=== PATIENT | male | born 1945 | race Caucasian/White ===

== ENCOUNTER 2022-10-03 17:29 | Inpatient (IN) | payer MEDICARE, OTHER ==
[~2022-10-03] VITALS: Ht 165.1 cm; Wt 81.6 kg
[2022-10-03] MEDS ORDERED: ACET325C7 PO (19:16)
[2022-10-03] MEDS ORDERED: APIX5TAB PO (19:16)
[2022-10-03] MEDS ORDERED: ATOR40TA PO (19:16)
[2022-10-03] MEDS ORDERED: ARIP2TAB3 PO (19:16)
[2022-10-03 19:34] VITALS: BP 99/62
[2022-10-03] MEDS ORDERED: LORA-258 PO (19:45)
[2022-10-03] MEDS ORDERED: NITR0.4T48 SL (19:46)
[2022-10-03] MEDS ORDERED: METO200T49 PO (19:46)
[2022-10-03] MEDS ORDERED: TAMS-3 PO (19:49)
[2022-10-03] MEDS ORDERED: OSEL75CA PO (19:49)
[2022-10-03] MEDS ORDERED: FERR325T28 PO (20:03)
[2022-10-03] MEDS ORDERED: ASPI-618 PO (20:03)
[2022-10-03] MEDS ORDERED: CLOP75TA15 PO (20:03)
[2022-10-03] MEDS ORDERED: METO-358 PO (20:03)
[2022-10-03] MEDS ORDERED: DILT-3 PO (20:03)
[2022-10-03] MEDS ORDERED: POTA10CA43 PO (20:03)
[2022-10-03] MEDS ORDERED: BUME1TAB8 PO (20:03)
[2022-10-03] MEDS ORDERED: NITROGLYCERIN 0.4 MG/TAB BOTTLE SL PRN (20:45)
[2022-10-03 20:52] VITALS: BP 98/61
[2022-10-03] MEDS: APIXABAN 5 MG TABLET PO SCH (21:00)
[2022-10-03] MEDS: DOCUSATE SODIUM 100 MG CAPSULE PO SCH (21:00)
[2022-10-03] MEDS ORDERED: OSELTAMIVIR PHOSPHATE 75 MG CAPSULE PO SCH (21:00)
[2022-10-03] MEDS: ATORVASTATIN 40 MG TABLET PO SCH (21:37)
[2022-10-03] MEDS: LORAZEPAM 0.5 MG TABLET PO PRN (21:37)
[2022-10-03] MEDS: TAMSULOSIN HCL 0.4 MG CAP.SR.24H PO SCH (21:37)
--- NOTE | 2022-10-03 23:51 | NUR ---
patient admitted from [facility], alert, oriented x3 in his language, no sob, respirations are even nonlabored, skin warm and dry to touch, noted with purple bruise on his left side of trunk, blisters on his lower back, right toe discoloration, patient is ambulatory with contact guard, patient placed on contact isolation for questionable shingles on lower back with closed blisters, and patient is positive for influenza A since 09/28/22 from [facility] records. patient note with bleeding while urinating, and held Eliquis. no further bleeding noted, continue to monitor. dr watson reconciled the medications.
[2022-10-04] MEDS ORDERED: QUETIAPINE FUMARATE 25 MG TABLET PO STA (03:23)
--- NOTE | 2022-10-04 03:29 | NUR ---
Patient is very anxious, pacing around, high risk to fall, reoriented, assisted to the bathroom, still very anxious, called mason Ceja, with order to give seroquel, order noted
--- NOTE | 2022-10-04 03:55 | NUR ---
psych consult in place for agitation and anxiety, face sheet faxed to [facility] for consult.
[2022-10-04 04:40] VITALS: BP 124/73
--- NOTE | 2022-10-04 05:30 | NUR ---
patient constantly yelling, screaming, very agitative, combative, trying to leave, hitting staff, and walk out, reoriented, not effective, Seroquel not effective, monitored closely for safety.
--- NOTE | 2022-10-04 05:35 | NUR ---
Brenna VILLALBA paged waiting for call back regarding patient screaming, yelling, combativeness.
[2022-10-04] MEDS ORDERED: OLANZAPINE 10 MG VIAL IM STA (05:52)
--- NOTE | 2022-10-04 07:08 | NUR ---
patient in bed, laying down, still noted with yelling screaming, safety precautions are in place, checked on patient every 15 minutes, skin is intact, capillary refill to hands is less than 3 seconds, no distress noted at this time. endorsed to next shift accordingly.
[2022-10-04 07:38] LABS: IRON, SERUM 41 ug/dL (50-175)
[2022-10-04 07:50] VITALS: BP 125/84
[2022-10-04 07:51] LABS: HEMATOCRIT 39.8 % (36.7-47.1); MEAN CORPUSCULAR HEMOGLOBIN 31.5 uug (23.8-33.4); MEAN CORPUSCULAR VOLUME 94.7 fL (73.0-96.2); PLATELET COUNT (AUTO) 183 K/uL (152-348)
[2022-10-04 07:52] LABS: THYROID STIMULATING HORMONE 1.321 mIU/mL (0.358-3.740)
[2022-10-04 08:19] LABS: ALANINE AMINOTRANSFERASE 43 U/L (16-63); ALKALINE PHOSPHATASE 90 U/L (50-136); ASPARTATE AMINOTRANSFERASE 50 U/L (15-37); BILIRUBIN,TOTAL 0.8 mg/dL (0.2-1.0); CARBON DIOXIDE 27 mmol/L (21-32); CHLORIDE 108 mmol/L (98-107); CHOLESTEROL 129 mg/dL (<200); CREATININE 0.7 mg/dL (0.6-1.3); GLUCOSE 115 mg/dL (74-106); HDL CHOLESTEROL 43 mg/dL (40-60); MAGNESIUM 1.8 mg/dL (1.8-2.4); PHOSPHOROUS 2.1 mg/dL (2.5-4.9); POTASSIUM 3.4 mmol/L (3.5-5.1); TOTAL PROTEIN, SERUM 6.5 g/dL (6.4-8.2); TRIGLYCERIDES 87 MG/DL (30-150); UREA NITROGEN, BLOOD 12 mg/dL (7-18)
[2022-10-04] MEDS: POTASSIUM CHLORIDE 20 MEQ TAB.PRT.SR PO SCH (09:00)
[2022-10-04] MEDS ORDERED: POTASSIUM CHLORIDE 10 MEQ TAB.PRT.SR PO SCH (09:00)
[2022-10-04] MEDS ORDERED: ARIPIPRAZOLE 2 MG TABLET PO SCH ×2 (09:00→12:00)
[2022-10-04] MEDS ORDERED: POTASSIUM CHLORIDE 20 MEQ TAB.PRT.SR PO ONE (10:00)
[2022-10-04] MEDS: APIXABAN 5 MG TABLET PO SCH ×2 (10:23→21:48)
[2022-10-04] MEDS: FERROUS SULFATE 325 MG TABEC PO SCH (10:23)
[2022-10-04] MEDS: LORAZEPAM 0.5 MG TABLET PO PRN ×2 (10:23→15:28)
[2022-10-04] MEDS: ASPIRIN EC 81 MG TABLET.DR PO SCH (10:23)
[2022-10-04] MEDS: DILTIAZEM HCL CD 240 MG CAP.SR.24H PO SCH (10:24)
[2022-10-04] MEDS: CLOPIDOGREL 75 MG TABLET PO SCH (10:25)
[2022-10-04] MEDS: BUMETANIDE 1 MG TABLET PO SCH (10:27)
[2022-10-04] MEDS: QUETIAPINE FUMARATE 25 MG TABLET PO PRN (15:19)
[2022-10-04] MEDS: OSELTAMIVIR PHOSPHATE 75 MG CAPSULE PO SCH ×2 (15:25→21:48)
--- NOTE | 2022-10-04 15:45 | NUR ---
RESTRAINTS RELEASED FOR TRIAL
[2022-10-04] MEDS ORDERED: NEUTRA PHOS PACKET PO ONE (16:30)
[2022-10-04 16:44] VITALS: BP 139/70
[2022-10-04 20:51] VITALS: BP 124/53
[2022-10-04] MEDS: DOCUSATE SODIUM 100 MG CAPSULE PO SCH (21:47)
[2022-10-04] MEDS: TAMSULOSIN HCL 0.4 MG CAP.SR.24H PO SCH (21:48)
[2022-10-04] MEDS: ATORVASTATIN 40 MG TABLET PO SCH (21:48)
[2022-10-05] MEDS: QUETIAPINE FUMARATE 25 MG TABLET PO PRN ×2 (02:18→23:11)
[2022-10-05 04:49] VITALS: BP 113/66
[2022-10-05] MEDS: LORAZEPAM 0.5 MG TABLET PO PRN ×3 (06:14→20:34)
[2022-10-05] MEDS: ACETAMINOPHEN 325 MG TABLET PO PRN (06:15)
[2022-10-05] MEDS: PANTOPRAZOLE SODIUM 40 MG TABLET.DR PO SCH ×2 (06:58→09:20)
[2022-10-05 08:21] VITALS: BP 126/84
[2022-10-05] MEDS: BUMETANIDE 1 MG TABLET PO SCH (09:19)
[2022-10-05] MEDS: DILTIAZEM HCL CD 240 MG CAP.SR.24H PO SCH (09:20)
[2022-10-05] MEDS: ASPIRIN EC 81 MG TABLET.DR PO SCH (09:20)
[2022-10-05] MEDS: APIXABAN 5 MG TABLET PO SCH ×2 (09:21→20:39)
[2022-10-05] MEDS: CLOPIDOGREL 75 MG TABLET PO SCH (09:21)
[2022-10-05] MEDS: POTASSIUM CHLORIDE 20 MEQ TAB.PRT.SR PO SCH (09:21)
[2022-10-05] MEDS: FERROUS SULFATE 325 MG TABEC PO SCH (09:21)
[2022-10-05] MEDS: OSELTAMIVIR PHOSPHATE 75 MG CAPSULE PO SCH ×2 (09:27→20:41)
[2022-10-05] MEDS: GLUCERNA SHAKE 237 ML CAN PO SCH (12:18)
[2022-10-05] MEDS: VALACYCLOVIR HCL 500 MG TABLET PO SCH ×2 (14:00→20:41)
--- NOTE | 2022-10-05 15:48 | NUR ---
Patient has been getting up from bed to the bathroom without any assist. He is alert and oriented x1-2. Normal air movement with no apparent distress noted. Patient doesn't like to be in bed. He prefer to be up on chair. Family member visit earlier today. Ativan given at 1300, calm and relax currently. He denies pain when sn, asked. Will continue to monitor on same plan of care.
[2022-10-05 16:37] VITALS: BP 107/58
[2022-10-05 20:00] VITALS: BP 143/64
[2022-10-05] MEDS: TAMSULOSIN HCL 0.4 MG CAP.SR.24H PO SCH (20:33)
[2022-10-05] MEDS: DOCUSATE SODIUM 100 MG CAPSULE PO SCH (20:33)
[2022-10-05] MEDS: ATORVASTATIN 40 MG TABLET PO SCH (20:33)
--- NOTE | 2022-10-05 22:59 | NUR ---
Inspected patient for his blisters on the back, cluster of blisters intact, fluid filled, red in color
--- NOTE | 2022-10-06 05:21 | NUR ---
patient is alert, awake, no sob, respirations are even nonlabored,skin warm and dry to touch, patient constantly up at night, goes to bathroom, yells, goes back to sleep. reinforced fall risks precautions, poor concentration, noncompliant with fall risk precautions, when tried to reorient or tried to reinforce fall risk precautions, gets very upset, yells and screams. however FWW with in reach, personal belongings with in reach, free from clutters. Addendum: 10/06/22 at 0631 by HAYDEN UPTON RN, RN no hematuria or active bleeding noted
[2022-10-06 06:12] VITALS: BP 103/72
[2022-10-06 08:02] VITALS: BP 97/68
[2022-10-06] MEDS: DILTIAZEM HCL CD 240 MG CAP.SR.24H PO SCH (09:00)
[2022-10-06] MEDS: ASPIRIN EC 81 MG TABLET.DR PO SCH (09:30)
[2022-10-06] MEDS: BUMETANIDE 1 MG TABLET PO SCH (09:30)
[2022-10-06] MEDS: CLOPIDOGREL 75 MG TABLET PO SCH (09:31)
[2022-10-06] MEDS: FERROUS SULFATE 325 MG TABEC PO SCH (09:31)
[2022-10-06] MEDS: POTASSIUM CHLORIDE 20 MEQ TAB.PRT.SR PO SCH (09:31)
[2022-10-06] MEDS: GLUCERNA SHAKE 237 ML CAN PO SCH (09:32)
[2022-10-06] MEDS: VALACYCLOVIR HCL 500 MG TABLET PO SCH ×2 (09:36→20:58)
[2022-10-06] MEDS: APIXABAN 5 MG TABLET PO SCH ×2 (09:36→21:02)
[2022-10-06] MEDS: ACETAMINOPHEN 325 MG TABLET PO PRN (11:39)
--- NOTE | 2022-10-06 12:37 | NUR ---
WOUND CARE CONSULT: PT PRESENTS WITH LEFT HIP AREA DISCOLORATION FROM FALL AT HOME AND ALSO LESIONS TO LEFT BUTTOCK, PRESENT ON ADMISSION. DR STRATTON CALLED FOR CONSULT. IN AGREEMENT WITH PLAN OF CARE.
[2022-10-06] MEDS: LORAZEPAM 0.5 MG TABLET PO PRN ×2 (12:47→20:57)
--- NOTE | 2022-10-06 15:17 | NUR ---
INDIVIDUALIZED PLAN OF CARE
[2022-10-06 15:51] VITALS: BP 113/76
--- NOTE | 2022-10-06 19:53 | NUR ---
RECEIVED REPORT FROM BRINDA GAMEZ SHIFT RN. PATIENT IS ALERT AND ORIENTED X3-4 AND SPEAKS MAINLY LITHUANIAN. PATIENT CAN UNDERSTAND A BIT OF MONGOLIAN. PATIENT TOLERATES PO MEDICATIONS AND DIET WELL. PATIENT ON CONTACT ISOLATION UNDER INVESTIGATION FOR SHINGLES LOCATION ON THE LEFT BUTTOCKS. PATIENT PARTICIPATES WITH PHYSICAL THERAPY SCHEDULED. PATIENT COMPLAINED OF HEADACHE, AND RN GAVE TYLENOL. PATIENT DENIES PAIN FOR THE REST OF THE SHIFT. PATIENT GETS OUT OF BED OFTEN, RN AND INOCENTE JULIAN, MAINTAINS SUPERVISION. RN MET WITH SRIKANTH SALMON, FROM WOUND CARE TO DISCUSS AND ASSESS THE LESIONS LOCATED ON THE BUTTOCKS. NO NEW ORDERS FROM WOUND CARE, BUT WOUND CARE NURSE WILL FOLLOW UP WITH DOCTORS. PER FAMILY, PATIENT IS TO RECEIVE LORAZEPAM THREE TIMES DAILY AT THE FOLLOWING TIMES: 8:00AM, 16:00PM, & 21:00PM. PER FAMILY, THEY WOULD LIKE TO CHANGE ELIQUIS 5MG TWO TIMES DAILY TO 2.5MG TWO TIMES DAILY. OTHER CHANGES FAMILY WOULD LIKE INCLUDE ADDING ABILIFY 2GM ONCE DAILY FOR 16:00PM & LEXAPRO 10MG ONCE DAILY AT 12:00PM. RN UNABLE TO NOTIFY MD. RN ENDORSED TO CARE CENTER MANAGER RN, TO ENDORSE WITH CARE. NO ACUTE DISTRESS NOTED. FALL PRECAUTIONS IN PLACE, INCLUDING BED IN LOWEST POSITION AND BED ALARM ON. ALL NEEDS MET AT THIS TIME. RN ENDORSED CARE TO BRINDA TABOR RN.
[2022-10-06 20:00] VITALS: BP 140/60
[2022-10-06] MEDS: DOCUSATE SODIUM 100 MG CAPSULE PO SCH (20:57)
[2022-10-06] MEDS: ATORVASTATIN 40 MG TABLET PO SCH (20:58)
[2022-10-06] MEDS: TAMSULOSIN HCL 0.4 MG CAP.SR.24H PO SCH (21:02)
[2022-10-07 04:00] VITALS: BP 119/87
--- NOTE | 2022-10-07 04:53 | NUR ---
AAOx2-3 Ambulatory. Admitted for generalized weakness. On contact isolation for shingles. VSS Kept comfortable. Will monitor patient. Continent of bowel and bladder. No complaints presented during shift.
[2022-10-07] MEDS: NEXIUM 20 MG PO SCH (06:07)
[2022-10-07 06:49] LABS: HEMATOCRIT 38.6 % (36.7-47.1); MEAN CORPUSCULAR HEMOGLOBIN 31.6 uug (23.8-33.4); MEAN CORPUSCULAR VOLUME 94.5 fL (73.0-96.2); PLATELET COUNT (AUTO) 249 K/uL (152-348)
[2022-10-07 07:03] LABS: CREATININE 0.8 mg/dL (0.6-1.3); MAGNESIUM 1.9 mg/dL (1.8-2.4); PHOSPHOROUS 2.5 mg/dL (2.5-4.9); POTASSIUM 4.1 mmol/L (3.5-5.1)
[2022-10-07 08:00] VITALS: BP 120/81
[2022-10-07] MEDS: POTASSIUM CHLORIDE 20 MEQ TAB.PRT.SR PO SCH (08:11)
[2022-10-07] MEDS: ASPIRIN EC 81 MG TABLET.DR PO SCH (08:11)
[2022-10-07] MEDS: FERROUS SULFATE 325 MG TABEC PO SCH (08:11)
[2022-10-07] MEDS: CLOPIDOGREL 75 MG TABLET PO SCH (08:11)
[2022-10-07] MEDS: BUMETANIDE 1 MG TABLET PO SCH (08:11)
[2022-10-07] MEDS: LORAZEPAM 0.5 MG TABLET PO PRN ×3 (08:12→21:02)
[2022-10-07] MEDS: DILTIAZEM HCL CD 240 MG CAP.SR.24H PO SCH (08:16)
[2022-10-07] MEDS: VALACYCLOVIR HCL 500 MG TABLET PO SCH ×2 (09:47→21:03)
[2022-10-07] MEDS: GLUCERNA SHAKE 237 ML CAN PO SCH (09:48)
[2022-10-07] MEDS: APIXABAN 5 MG TABLET PO SCH ×2 (09:48→21:02)
--- NOTE | 2022-10-07 12:50 | NUR ---
0730-REC'D PATIENT SITTING AT BEDSIDE, ALERT AND ORIENTED, ABLE TO VERBALIZE HIS NEEDS, NO RESPIRATORY DISTRESS NOTED. CONTINUES ON CONTACT ISOLATION DT SHINGLES & STRICTLY CONTAINED/FOLLOWED. PATIENT DENIES ANY PAIN OR DISCOMFORT. ENCOURAGED TO USE CALL LIGHT FOR HELP EVERY TIME NEEDED WITH GOOD UNDERSTANDING. 0900-SCHEDULED/DUE MEDICATION ADMINISTERED ORDERED WELL A PRN ATIVAN PER PATIENT'S REQUEST. ORAL FLUIDS TAKEN WELL.
[2022-10-07] MEDS: ACETAMINOPHEN 325 MG TABLET PO PRN (13:48)
--- NOTE | 2022-10-07 15:55 | NUR ---
INTERDISCIPLINARY TEAM CONFERENCE
[2022-10-07 16:00] VITALS: BP 106/68
--- NOTE | 2022-10-07 18:56 | NUR ---
ASSISTED PATIENT WITH ADLS THROUGH OUT THE DAY. CARE PROVIDED AT ROUTINE INTERVALS AND NEEDED. NEEDS ANTICIPATED AND MET. ROUTINE ROUNDS AND FREQUENT VISUAL CHECKS DONE DURING SHIFT AND CALL LIGHTS ANSWERED PROMPTLY. SCHEDULED AND PRN MEDICATIONS ADMINISTERED ORDERED AND NEEDED BY PATIENT.
[2022-10-07] MEDS: TAMSULOSIN HCL 0.4 MG CAP.SR.24H PO SCH (21:01)
[2022-10-07] MEDS: ATORVASTATIN 40 MG TABLET PO SCH (21:01)
[2022-10-07] MEDS: DOCUSATE SODIUM 100 MG CAPSULE PO SCH (21:01)
[2022-10-07 21:12] VITALS: BP 118/89
[2022-10-08 04:15] VITALS: BP 126/78
--- NOTE | 2022-10-08 04:58 | NUR ---
Contact isolation maintained. AAOx4 Ambulatory All needs attended. Voiding well. Denies any pain nor any discomfort. Will monitor patient. All due meds given.
[2022-10-08] MEDS: NEXIUM 20 MG PO SCH (06:11)
[2022-10-08 07:48] VITALS: BP 113/78
[2022-10-08] MEDS: CLOPIDOGREL 75 MG TABLET PO SCH (08:30)
[2022-10-08] MEDS: FERROUS SULFATE 325 MG TABEC PO SCH (08:30)
[2022-10-08] MEDS: VALACYCLOVIR HCL 500 MG TABLET PO SCH ×2 (08:31→20:23)
[2022-10-08] MEDS: DILTIAZEM HCL CD 240 MG CAP.SR.24H PO SCH (08:31)
[2022-10-08] MEDS: LORAZEPAM 0.5 MG TABLET PO PRN ×3 (08:31→20:23)
[2022-10-08] MEDS: POTASSIUM CHLORIDE 20 MEQ TAB.PRT.SR PO SCH (08:31)
[2022-10-08] MEDS: APIXABAN 5 MG TABLET PO SCH ×2 (08:32→20:22)
[2022-10-08] MEDS: ACETAMINOPHEN 325 MG TABLET PO SCH (08:33)
[2022-10-08] MEDS: BUMETANIDE 1 MG TABLET PO SCH (08:33)
[2022-10-08] MEDS: GLUCERNA SHAKE 237 ML CAN PO SCH (08:33)
[2022-10-08 16:36] VITALS: BP 115/74
[2022-10-08 20:00] VITALS: BP 127/64
[2022-10-08] MEDS: DOCUSATE SODIUM 100 MG CAPSULE PO SCH (20:22)
[2022-10-08] MEDS: TAMSULOSIN HCL 0.4 MG CAP.SR.24H PO SCH (20:23)
[2022-10-08] MEDS: ATORVASTATIN 40 MG TABLET PO SCH (20:23)
[2022-10-08] MEDS ORDERED: TRAMADOL HCL 50 MG TABLET PO PRN (23:30)
[2022-10-09 04:00] VITALS: BP 102/68
--- NOTE | 2022-10-09 04:06 | NUR ---
Condition stable. Needs attended. VSS. Contact isolation maintained. Took meds without any problem. Denies any pain nor any discomfort. Will monitor patient. Voiding well. Contact isolation maintained.
[2022-10-09] MEDS: LORAZEPAM 0.5 MG TABLET PO PRN ×3 (05:16→21:15)
[2022-10-09] MEDS: NEXIUM 20 MG PO SCH (06:15)
[2022-10-09 07:58] VITALS: BP 118/61
[2022-10-09] MEDS: FERROUS SULFATE 325 MG TABEC PO SCH (09:19)
[2022-10-09] MEDS: BUMETANIDE 1 MG TABLET PO SCH ×2 (09:19→16:56)
[2022-10-09] MEDS: CLOPIDOGREL 75 MG TABLET PO SCH (09:19)
[2022-10-09] MEDS: POTASSIUM CHLORIDE 20 MEQ TAB.PRT.SR PO SCH (09:19)
[2022-10-09] MEDS: ACETAMINOPHEN 325 MG TABLET PO SCH (09:19)
[2022-10-09] MEDS: APIXABAN 5 MG TABLET PO SCH ×2 (09:20→21:14)
[2022-10-09] MEDS: DILTIAZEM HCL CD 240 MG CAP.SR.24H PO SCH (09:21)
[2022-10-09] MEDS: VALACYCLOVIR HCL 500 MG TABLET PO SCH ×2 (09:23→21:15)
[2022-10-09] MEDS: GLUCERNA SHAKE 237 ML CAN PO SCH (09:24)
[2022-10-09 16:15] VITALS: BP 110/60
--- NOTE | 2022-10-09 18:08 | NUR ---
Patient alert and oriented, verbalizes needs and follows directions. Ambulates with FWW/PT/OT & nursing supervision. Continues with treatment to buttocks postules. Affected areas improving & healing well. Patient denies any pain. VSS during shift, NO CLAUDINE or LOC noted; assisted with personal care/hygiene/bathing and dressing; Contact isolation precautions for shingles strictly observed and contained. All needs anticipated and met.
[2022-10-09] MEDS: DOCUSATE SODIUM 100 MG CAPSULE PO SCH (21:13)
[2022-10-09] MEDS: ATORVASTATIN 40 MG TABLET PO SCH (21:15)
[2022-10-09] MEDS: TAMSULOSIN HCL 0.4 MG CAP.SR.24H PO SCH (21:15)
[2022-10-10] MEDS: LORAZEPAM 0.5 MG TABLET PO PRN ×3 (04:51→18:00)
[2022-10-10] MEDS ORDERED: NEXIUM 20 MG PO SCH (07:07)
[2022-10-10 08:00] VITALS: BP 105/57
[2022-10-10] MEDS: NEXIUM 20 MG PO SCH (09:28)
[2022-10-10] MEDS: VALACYCLOVIR HCL 500 MG TABLET PO SCH ×2 (09:28→20:36)
[2022-10-10] MEDS: POTASSIUM CHLORIDE 20 MEQ TAB.PRT.SR PO SCH (09:29)
[2022-10-10] MEDS: BUMETANIDE 1 MG TABLET PO SCH ×2 (09:29→18:00)
[2022-10-10] MEDS: FERROUS SULFATE 325 MG TABEC PO SCH (09:29)
[2022-10-10] MEDS: ACETAMINOPHEN 325 MG TABLET PO SCH (09:29)
[2022-10-10] MEDS: DILTIAZEM HCL CD 240 MG CAP.SR.24H PO SCH (09:30)
[2022-10-10] MEDS: APIXABAN 5 MG TABLET PO SCH ×2 (09:31→20:36)
[2022-10-10] MEDS: CLOPIDOGREL 75 MG TABLET PO SCH (09:32)
[2022-10-10] MEDS: GLUCERNA SHAKE 237 ML CAN PO SCH (09:32)
[2022-10-10 16:28] VITALS: BP 118/80
[2022-10-10 20:00] VITALS: BP 119/81
--- NOTE | 2022-10-10 20:00 | NUR ---
NSG: Received patient lying in bed, alert and oriented x3, pleasant upon approach, no c/o pain or discomfort at this time. uses urinal. safety precautions are in place, skin is intact, no distress noted at this time. call light w/in reach.
[2022-10-10] MEDS: TAMSULOSIN HCL 0.4 MG CAP.SR.24H PO SCH (20:37)
[2022-10-10] MEDS: ATORVASTATIN 40 MG TABLET PO SCH (20:37)
[2022-10-10] MEDS: DOCUSATE SODIUM 100 MG CAPSULE PO SCH (20:37)
[2022-10-11 04:00] VITALS: BP 127/94
--- NOTE | 2022-10-11 04:01 | NUR ---
NSG: Remained on Contact isolation. Alert and oriented x3, Ambulatory All needs attended. Voiding well. Denies any pain or any discomfort at this time. All due meds given. call light w/in reach..
[2022-10-11] MEDS: LORAZEPAM 0.5 MG TABLET PO PRN ×2 (04:43→09:56)
--- NOTE | 2022-10-11 04:45 | NUR ---
ativan 0.5 mg po given for anxiety per patient requested.
[2022-10-11] MEDS: NEXIUM 20 MG PO SCH (06:02)
--- NOTE | 2022-10-11 07:06 | NUR ---
valtrex 500 mg po d/oliverio per MD Jacobs .
[2022-10-11 07:52] VITALS: BP 134/84
[2022-10-11] MEDS: POTASSIUM CHLORIDE 20 MEQ TAB.PRT.SR PO SCH (08:28)
[2022-10-11] MEDS: BUMETANIDE 1 MG TABLET PO SCH (08:28)
[2022-10-11] MEDS: CLOPIDOGREL 75 MG TABLET PO SCH (08:29)
[2022-10-11] MEDS: ACETAMINOPHEN 325 MG TABLET PO SCH (08:29)
[2022-10-11] MEDS: FERROUS SULFATE 325 MG TABEC PO SCH (08:29)
[2022-10-11] MEDS: DILTIAZEM HCL CD 240 MG CAP.SR.24H PO SCH (08:30)
[2022-10-11] MEDS: APIXABAN 5 MG TABLET PO SCH ×2 (08:30→20:45)
[2022-10-11] MEDS: GLUCERNA SHAKE 237 ML CAN PO SCH (08:31)
--- NOTE | 2022-10-11 15:22 | NUR ---
spoke with md burris says he will be here for podiatry consult as ordered
[2022-10-11 16:48] VITALS: BP 102/53
[2022-10-11 20:34] VITALS: BP 113/66
[2022-10-11] MEDS: ATORVASTATIN 40 MG TABLET PO SCH (20:43)
[2022-10-11] MEDS: TAMSULOSIN HCL 0.4 MG CAP.SR.24H PO SCH (20:43)
[2022-10-11] MEDS: DOCUSATE SODIUM 100 MG CAPSULE PO SCH (20:43)
[2022-10-12] MEDS: ACETAMINOPHEN 325 MG TABLET PO PRN (01:48)
--- NOTE | 2022-10-12 01:51 | NUR ---
Complaint of some discomforts, Tylenol 650 mg given as needed and ordered. Will monitor.
[2022-10-12 04:05] VITALS: BP 128/76
[2022-10-12] MEDS: LORAZEPAM 0.5 MG TABLET PO PRN ×3 (04:53→20:42)
[2022-10-12] MEDS: NEXIUM 20 MG PO SCH (05:19)
[2022-10-12 07:45] VITALS: BP 109/59
[2022-10-12] MEDS: APIXABAN 5 MG TABLET PO SCH ×2 (09:05→20:22)
[2022-10-12] MEDS: ACETAMINOPHEN 325 MG TABLET PO SCH (09:06)
[2022-10-12] MEDS: POTASSIUM CHLORIDE 20 MEQ TAB.PRT.SR PO SCH (09:06)
[2022-10-12] MEDS: BUMETANIDE 1 MG TABLET PO SCH (09:06)
[2022-10-12] MEDS: CLOPIDOGREL 75 MG TABLET PO SCH (09:06)
[2022-10-12] MEDS: FERROUS SULFATE 325 MG TABEC PO SCH (09:06)
[2022-10-12] MEDS: DILTIAZEM HCL CD 240 MG CAP.SR.24H PO SCH (09:08)
[2022-10-12] MEDS: GLUCERNA SHAKE 237 ML CAN PO SCH (09:09)
--- NOTE | 2022-10-12 11:40 | NUR ---
received call from lab troponin [id number]. charge nurse f/u and documented. stated it is tranding down to right direction. no need to report MD.
[2022-10-12 11:44] LABS: HEMATOCRIT 42.1 % (36.7-47.1); MEAN CORPUSCULAR HEMOGLOBIN 31.3 uug (23.8-33.4); MEAN CORPUSCULAR VOLUME 94.4 fL (73.0-96.2); PLATELET COUNT (AUTO) 304 K/uL (152-348)
[2022-10-12 11:54] LABS: CREATININE 0.9 mg/dL (0.6-1.3); POTASSIUM 4.5 mmol/L (3.5-5.1)
[2022-10-12 12:04] LABS: BILIRUBIN,TOTAL 0.3 mg/dL (0.2-1.0); TOTAL PROTEIN, SERUM 7.7 g/dL (6.4-8.2)
--- NOTE | 2022-10-12 15:20 | NUR ---
patient is very anxious stated i can't breath. 02 sat 97% in room air. ativan 0.5 mg po given .v/s wnl. continue monitoring for safety.
--- NOTE | 2022-10-12 16:20 | NUR ---
patient is calm now. v/s wnl. ativan for anxiety effective.
[2022-10-12 16:29] VITALS: BP 121/77
[2022-10-12] MEDS: TAMSULOSIN HCL 0.4 MG CAP.SR.24H PO SCH (20:21)
[2022-10-12] MEDS: DOCUSATE SODIUM 100 MG CAPSULE PO SCH (20:21)
[2022-10-12] MEDS: ATORVASTATIN 40 MG TABLET PO SCH (20:22)
[2022-10-12 20:24] VITALS: BP 131/71
[2022-10-13] MEDS: ACETAMINOPHEN 325 MG TABLET PO PRN ×2 (03:28→22:32)
[2022-10-13] MEDS: LORAZEPAM 0.5 MG TABLET PO PRN ×2 (04:29→11:12)
[2022-10-13] MEDS: NEXIUM 20 MG PO SCH (04:30)
--- NOTE | 2022-10-13 04:31 | NUR ---
Nexium given early than schedul per patient request complaining of heart burn. and Ativan for anxiety. Will monitor.
[2022-10-13 04:38] VITALS: BP 110/51
--- NOTE | 2022-10-13 07:50 | NUR ---
PATIENT AWAKE, A/OX3-4, IN BED, NO RESP. DISTRESS NOTED, DENIES ANY PAIN OR DISCOMFORT; VERBALIZES NEEDS AND FOLLOWS DIRECTIONS. NO UNUSUAL FINDINGS AT THIS TIME. ENCOURAGE TO USE CALL LIGHT FOR HELP WHEN NEEDED WITH GOOD UNDERSTANDING.
[2022-10-13 07:51] VITALS: BP 112/79
[2022-10-13] MEDS: ACETAMINOPHEN 325 MG TABLET PO SCH (08:19)
[2022-10-13] MEDS: BUMETANIDE 1 MG TABLET PO SCH (08:19)
[2022-10-13] MEDS: FERROUS SULFATE 325 MG TABEC PO SCH (08:19)
[2022-10-13] MEDS: APIXABAN 5 MG TABLET PO SCH ×2 (08:20→20:13)
[2022-10-13] MEDS: CLOPIDOGREL 75 MG TABLET PO SCH (08:20)
[2022-10-13] MEDS: POTASSIUM CHLORIDE 20 MEQ TAB.PRT.SR PO SCH (08:20)
[2022-10-13] MEDS: DILTIAZEM HCL CD 240 MG CAP.SR.24H PO SCH (08:22)
[2022-10-13] MEDS: GLUCERNA SHAKE 237 ML CAN PO SCH (09:09)
[2022-10-13] MEDS: QUETIAPINE FUMARATE 25 MG TABLET PO PRN ×2 (14:44→23:35)
[2022-10-13 16:55] VITALS: BP 114/88
--- NOTE | 2022-10-13 18:53 | NUR ---
Patient alert and oriented, able to verbalize simple, OOB daily, sits on chair in his room, denies pain. Patient with on and off episodes of anxiety, provided verbal redirections with minimal help. Medicated PRN with Ativan and Seroquel as ordered by MD with help. Noted patient often times prefers to call daughter and have her call nurse for his needs. Educated patient on the use of call light and encouraged to use it every time help is needed and to please to let nurses know what he needs rather than calling his daughter as this delays prompt and timely treatment or attention to his needs, patient verbalized understanding. Routine rounds done, reassurance provided as needed. Care provided at routine intervals/PRN,. frequent visual checks done. Endorsed to incoming relieving nurse appropriately.
[2022-10-13] MEDS: TAMSULOSIN HCL 0.4 MG CAP.SR.24H PO SCH (20:11)
[2022-10-13] MEDS: ATORVASTATIN 40 MG TABLET PO SCH (20:11)
[2022-10-13] MEDS: DOCUSATE SODIUM 100 MG CAPSULE PO SCH (20:11)
[2022-10-13 21:12] VITALS: BP 121/77
[2022-10-14 05:35] VITALS: BP 111/52
[2022-10-14] MEDS: LORAZEPAM 0.5 MG TABLET PO PRN (05:46)
[2022-10-14] MEDS: NEXIUM 20 MG PO SCH (06:15)
[2022-10-14 09:00] VITALS: BP 120/53
[2022-10-14] MEDS: BUMETANIDE 1 MG TABLET PO SCH (09:11)
[2022-10-14] MEDS: FERROUS SULFATE 325 MG TABEC PO SCH (09:12)
[2022-10-14] MEDS: APIXABAN 5 MG TABLET PO SCH ×2 (09:13→21:03)
[2022-10-14] MEDS: CLOPIDOGREL 75 MG TABLET PO SCH (09:13)
[2022-10-14] MEDS: GLUCERNA SHAKE 237 ML CAN PO SCH (09:14)
[2022-10-14] MEDS: POTASSIUM CHLORIDE 20 MEQ TAB.PRT.SR PO SCH (09:14)
[2022-10-14] MEDS: ACETAMINOPHEN 325 MG TABLET PO SCH (09:14)
[2022-10-14] MEDS: DILTIAZEM HCL CD 240 MG CAP.SR.24H PO SCH (09:15)
--- NOTE | 2022-10-14 14:02 | NUR ---
INTERDISCIPLINARY TEAM CONFERENCE
[2022-10-14] MEDS: QUETIAPINE FUMARATE 25 MG TABLET PO PRN (15:21)
[2022-10-14 16:24] VITALS: BP 129/83
[2022-10-14] MEDS: LORAZEPAM 0.5 MG TABLET PO SCH ×2 (16:57→21:03)
[2022-10-14 20:00] VITALS: BP 112/63
[2022-10-14] MEDS: ATORVASTATIN 40 MG TABLET PO SCH (21:03)
[2022-10-14] MEDS: TAMSULOSIN HCL 0.4 MG CAP.SR.24H PO SCH (21:03)
[2022-10-14] MEDS: DOCUSATE SODIUM 100 MG CAPSULE PO SCH (21:03)
[2022-10-15] MEDS: NEXIUM 20 MG PO SCH (06:14)
[2022-10-15] MEDS: LORAZEPAM 0.5 MG TABLET PO SCH (08:06)
[2022-10-15] MEDS: POTASSIUM CHLORIDE 20 MEQ TAB.PRT.SR PO SCH (08:06)
[2022-10-15] MEDS: CLOPIDOGREL 75 MG TABLET PO SCH (08:07)
[2022-10-15] MEDS: BUMETANIDE 1 MG TABLET PO SCH (08:07)
[2022-10-15] MEDS: ACETAMINOPHEN 325 MG TABLET PO SCH (08:07)
[2022-10-15] MEDS: FERROUS SULFATE 325 MG TABEC PO SCH (08:07)
[2022-10-15] MEDS: DILTIAZEM HCL CD 240 MG CAP.SR.24H PO SCH (08:08)
[2022-10-15] MEDS: APIXABAN 5 MG TABLET PO SCH (08:09)
[2022-10-15 08:13] VITALS: BP 121/69
[2022-10-15] MEDS: GLUCERNA SHAKE 237 ML CAN PO SCH (08:15)
[2022-10-15] MEDS ORDERED: CYANOCOBALAMIN 1000 MCG/ML VIAL IM ONE (09:15)
--- NOTE | 2022-10-15 14:29 | NUR ---
Patient is alert,oriented x3, no sob, respiration are even nonlabored,skin warm and dry to touch, discharged home with daughter, patient refused to have discharge pictures taken, patient stated just check the skin whatever you want to check but no need to take picture of it, inspected skin, noted with dry scabed and crusted, pimples on back, no other skin issues noted. ambulatory, discharge instructions are given to daughter, daughter verbalized understanding of it, explained each medication. belongings are accounted and signed, sent with patient. prescription faxed to choice of pharmacy per daughter request.
== END 2022-10-15 14:30 | disposition home health service (06) | DRG 551 ==
PROVIDERS: ADMIT Physical Medicine & Rehabilitation Pain Medicine; ATTEND Physical Medicine & Rehabilitation Pain Medicine
DX: M48.061 Spinal stenosis, lumbar region without neurogenic claudication (principal); I21.A1 Myocardial infarction type 2; M62.82 Rhabdomyolysis; R17 Unspecified jaundice; G93.40 Encephalopathy, unspecified; F03.93 Unspecified dementia, unspecified severity, with mood disturbance; M47.816 Spondylosis without myelopathy or radiculopathy, lumbar region; D69.6 Thrombocytopenia, unspecified; I10 Essential (primary) hypertension; I25.10 Atherosclerotic heart disease of native coronary artery without angina pectoris; I48.91 Unspecified atrial fibrillation; Z79.899 Other long term (current) drug therapy; Z95.5 Presence of coronary angioplasty implant and graft; B02.9 Zoster without complications; F39 Unspecified mood [affective] disorder; E87.6 Hypokalemia; J11.1 Influenza due to unidentified influenza virus with other respiratory manifestations; L60.3 Nail dystrophy; S90.211A Contusion of right great toe with damage to nail, initial encounter; X58.XXXA Exposure to other specified factors, initial encounter; Y93.9 Activity, unspecified; Y92.009 Unspecified place in unspecified non-institutional (private) residence as the place of occurrence of the external cause; Z79.01 Long term (current) use of anticoagulants; G89.29 Other chronic pain; R53.1 Weakness
CPT/HCPCS: 36415; 71045; 83550; 83735; 84100; 84443; 84484; 85025; 93005; 97535-GO-CO; A4663; A6209; A6213; J2358; J3420